=== PATIENT | male | born 1985 | race Caucasian/White ===

== ENCOUNTER 2018-04-02 02:59 | Emergency (ER) | payer MEDICAID ==
[~2018-04-02] VITALS: Ht 182.9 cm; Wt 119.6 kg
[2018-04-02 03:02] VITALS: BP 138/73
== END 2018-04-02 03:43 | disposition home or self-care (01) ==
LOC: EDSEX 03:00 → ER 03:00
DX: R07.9 Chest pain, unspecified (principal)
CPT/HCPCS: 71045; 93005; 99284; 99285